=== PATIENT | female | born 1995 | race Caucasian/White ===

== ENCOUNTER → 2016-11-11 | Outpatient (CLI) | payer OTHER ==
[~2016-11-11] MED LIST: PRENATAL TABLE1 EAC3 PO
== END | disposition home or self-care (01) ==
LOC: RES 08:52
DX: R22.31 Localized swelling, mass and lump, right upper limb (principal)
CPT/HCPCS: 94060; 94726; 94729

== ENCOUNTER → 2017-02-12 | Outpatient (CLI) | payer OTHER ==
[~2017-02-12] MED LIST changes: +ACETAMINOPHEN325 M3 PO; +ONDANSETRON HCL8 MG PO; +PROCHLORPERAZIN10 MG PO; +ZANTAC150 MG PO
== END | disposition home or self-care (01) ==
LOC: AMB 08:26
DX: Z45.2 Encounter for adjustment and management of vascular access device (principal); I87.8 Other specified disorders of veins; Z92.21 Personal history of antineoplastic chemotherapy